=== PATIENT | male | born 1970 | race Caucasian/White ===

== ENCOUNTER 2023-01-05 21:35 | Inpatient (IN) | payer OTHER ==
[~2023-01-05] VITALS: Ht 195.6 cm; Wt 123.8 kg
[~2023-01-05 21:35] MED LIST: ASPI-1444 PO; ATOR40TA71 PO; CARV3.1231 PO; FURO20 PO; LOSA-381 PO; POTA8TAB71 PO; SPIR-37 PO
[2023-01-05 22:52] LABS: BASOPHILS % (AUTO) 0.9 % (0.0-2.0); EOSINOPHILS % (AUTO) 1.8 % (1.0-6.0); HEMATOCRIT 39.9 % (41-53); HEMOGLOBIN 12.6 g/dL (13.5-17.5); LYMPHOCYTES # (AUTO) 1.7 K/uL (1.0-4.8); LYMPHOCYTES % (AUTO) 19.5 % (22.0-44.0); MEAN CORPUSCULAR HEMOGLOBIN 25.7 pg (26.0-34.0); MEAN CORPUSCULAR HGB CONC 31.6 G/dL (31.0-37.0); MEAN CORPUSCULAR VOLUME 82 fL (80-100); MONOCYTES # (AUTO) 0.8 K/uL (0.1-1.0); MONOCYTES % (AUTO) 8.8 % (2.0-9.0); NEUTROPHILS # (AUTO) 6.1 K/uL (1.8-7.7); PLATELET COUNT (AUTO) 214 K/uL (150-450); RED BLOOD CELL COUNT(AUTO) 4.89 MIL/uL (4.50-5.90); RED CELL DISTRIBUTION WIDTH 18.4 % (11.5-14.5)
[2023-01-05 23:00] LABS: ANION GAP 11 mmol/L (8-16); CALCIUM, TOTAL 8.5 mg/dL (8.8-10.5); CARBON DIOXIDE 23 mmol/L (22-29); CHLORIDE 106 mmol/L (98-107); CREATININE 0.99 mg/dL (0.60-1.30); GLOMERULAR FILTR. RATE CALC > 60 mL/min (>60); GLUCOSE,RANDOM 98 mg/dL (70-110); POTASSIUM 4.3 mmol/L (3.5-5.1); SODIUM SERUM 140 mmol/L (136-145); UREA NITROGEN, BLOOD 21 mg/dL (7-18)
[2023-01-05] MEDS ORDERED: IPRATROPIUM BROMIDE 0.5 MG/2.5 ML NEB SOLUTION NEB ONE (23:00)
[2023-01-05] MEDS ORDERED: ALBUTEROL SULFATE 2.5 MG/0.5 ML NEB SOLUTION NEB ONE (23:00)
[2023-01-05] MEDS ORDERED: MethylPREDNISolone SOD SUCC 125 MG/2 ML VIAL IVP ONE (23:00)
[2023-01-05] MEDS ORDERED: FUROSEMIDE 40 MG/4 ML VIAL IVP ONE (23:00)
[2023-01-05 23:06] LABS: ALANINE AMINOTRANSFERASE 33 U/L (12-78); ALBUMIN 3.3 g/dL (3.4-5.0); ALKALINE PHOSPHATASE 165 U/L (46-116); ASPARTATE AMINOTRANSFERASE 30 U/L (15-37); BILIRUBIN,TOTAL 1.4 mg/dL (0.1-1.0); TOTAL PROTEIN, SERUM 7.1 g/dL (6.4-8.2)
[2023-01-05 23:08] LABS: INR 1.4 (0.9-1.1); PROTHROMBIN TIME 14.9 SEC (9.4-11.6)
[2023-01-05 23:25] LABS: B-TYPE NATRIURETIC PEPTIDE 920 pg/mL (0-100)
[2023-01-06] LABS: COVID AG,FIA SOURCE NASOPHARYNGEAL
[2023-01-06 00:23] LABS: APPEARANCE,URINE CLEAR (CLEAR); BILIRUBIN,URINE NEGATIVE (NEGATIVE); GLUCOSE, URINE (UA) NEGATIVE (NEGATIVE); KETONES,URINE NEGATIVE (NEGATIVE); LEUKOCYTE ESTERASE ,URINE NEGATIVE (NEGATIVE); NITRATE,URINE NEGATIVE (NEGATIVE); OCCULT BLOOD,URINE NEGATIVE (NEGATIVE); PROTEIN,URINE 30-70 mg/dL (NEGATIVE); SPECIFIC GRAVITIY, URINE 1.024 (1.003-1.030)
[2023-01-06 00:27] LABS: INFLUENZA TYPE A NEGATIVE FOR TYPE A (NEGATIVE); INFLUENZA TYPE B NEGATIVE FOR TYPE B (NEGATIVE)
[2023-01-06] MEDS ORDERED: ALBUTEROL SULFATE 2.5 MG/0.5 ML NEB SOLUTION NEB PRN (02:15)
[2023-01-06] MEDS ORDERED: IPRATROPIUM BROMIDE 0.5 MG/2.5 ML NEB SOLUTION NEB PRN (02:15)
[2023-01-06] MEDS ORDERED: ONDANSETRON HCL 4 MG/2 ML VIAL IVP PRN (02:15)
[2023-01-06 04:34] LABS: AMPHET/METH SCREEN,URINE POSITIVE (NEGATIVE); BARBITURATE SCREEN, URINE NEGATIVE (NEGATIVE); BENZODIAZEPINES SCREEN,URINE NEGATIVE (NEGATIVE); CANNABINOID SCREEN,URINE NEGATIVE (NEGATIVE); COCAINE SCREEN,URINE NEGATIVE (NEGATIVE); METHADONE SCREEN, URINE NEGATIVE (NEGATIVE); OPIATE SCREEN,URINE NEGATIVE (NEGATIVE); PHENCYCLIDINE SCREEN,URINE NEGATIVE (NEGATIVE)
[2023-01-06 08:10] VITALS: BP 133/87
[2023-01-06] MEDS: CARVEDILOL 6.25 MG TABLET PO SCH ×2 (08:18→21:04)
[2023-01-06] MEDS: HEPARIN SODIUM,PORCINE 5,000 UNITS/ML VIAL SQ SCH ×3 (08:18→23:55)
[2023-01-06] MEDS: FUROSEMIDE 40 MG/4 ML VIAL IVP SCH ×2 (08:18→21:03)
[2023-01-06] MEDS: SPIRONOLACTONE 25 MG TABLET PO SCH ×2 (08:18→21:04)
[2023-01-06] MEDS: ASPIRIN 81 MG CHEWABLE TABLET PO SCH (08:18)
[2023-01-06] MEDS: ATORVASTATIN CALCIUM 40 MG TABLET PO SCH (08:18)
[2023-01-06] MEDS ORDERED: FUROSEMIDE 20 MG/2 ML VIAL IVP SCH (09:00)
[2023-01-06] MEDS: CLOPIDOGREL BISULFATE 75 MG TABLET PO SCH (09:57)
[2023-01-06 16:02] VITALS: BP 125/78
[2023-01-06] MEDS ORDERED: AMLO10TA55 PO (16:04)
[2023-01-06] MEDS ORDERED: LOSARTAN POTASSIUM 25 MG TABLET PO SCH (21:00)
[2023-01-06 21:47] VITALS: BP 133/88
[2023-01-06 23:55] VITALS: BP 103/68
[2023-01-07 04:12] VITALS: BP 122/80
[2023-01-07 06:49] LABS: BASOPHILS % (AUTO) 0.2 % (0.0-2.0); EOSINOPHILS % (AUTO) 0.1 % (1.0-6.0); HEMATOCRIT 37.9 % (41-53); HEMOGLOBIN 12.1 g/dL (13.5-17.5); LYMPHOCYTES # (AUTO) 1.2 K/uL (1.0-4.8); LYMPHOCYTES % (AUTO) 7.5 % (22.0-44.0); MEAN CORPUSCULAR HEMOGLOBIN 25.8 pg (26.0-34.0); MEAN CORPUSCULAR VOLUME 81 fL (80-100); MONOCYTES # (AUTO) 1.1 K/uL (0.1-1.0); MONOCYTES % (AUTO) 6.9 % (2.0-9.0); NEUTROPHILS # (AUTO) 13.7 K/uL (1.8-7.7); PLATELET COUNT (AUTO) 232 K/uL (150-450); RED BLOOD CELL COUNT(AUTO) 4.69 MIL/uL (4.50-5.90); RED CELL DISTRIBUTION WIDTH 18.3 % (11.5-14.5)
[2023-01-07 06:54] LABS: NEUTROPHILS % (AUTO) 85.3 % (40.0-70.0)
[2023-01-07 06:59] LABS: ANION GAP 12 mmol/L (8-16); CALCIUM, TOTAL 8.4 mg/dL (8.8-10.5); CARBON DIOXIDE 24 mmol/L (22-29); CHLORIDE 102 mmol/L (98-107); CREATININE 0.95 mg/dL (0.60-1.30); GLOMERULAR FILTR. RATE CALC > 60 mL/min (>60); GLUCOSE,RANDOM 136 mg/dL (70-110); POTASSIUM 4.2 mmol/L (3.5-5.1); SODIUM SERUM 138 mmol/L (136-145); UREA NITROGEN, BLOOD 23 mg/dL (7-18)
[2023-01-07 07:30] VITALS: BP 112/82
[2023-01-07] MEDS: ASPIRIN 81 MG CHEWABLE TABLET PO SCH (08:59)
[2023-01-07] MEDS: HEPARIN SODIUM,PORCINE 5,000 UNITS/ML VIAL SQ SCH ×2 (08:59→15:56)
[2023-01-07] MEDS: ATORVASTATIN CALCIUM 40 MG TABLET PO SCH (09:00)
[2023-01-07] MEDS: SPIRONOLACTONE 25 MG TABLET PO SCH (09:00)
[2023-01-07] MEDS: FUROSEMIDE 40 MG/4 ML VIAL IVP SCH (09:00)
[2023-01-07] MEDS: CARVEDILOL 6.25 MG TABLET PO SCH (09:00)
[2023-01-07] MEDS: CLOPIDOGREL BISULFATE 75 MG TABLET PO SCH (09:01)
[2023-01-07] MEDS ORDERED: ALPRAZolam 0.25 MG TABLET PO ONE (11:30)
[2023-01-07 11:47] VITALS: BP 107/81
[2023-01-07] MEDS ORDERED: CefTRIAXone 1 GM/DEXTROSE 50 ML IV ONE (14:00)
[2023-01-07] MEDS ORDERED: SODIUM CHLORIDE 0.9% 250 ML IV ONE (14:34)
[2023-01-07] MEDS ORDERED: DOXYCYCLINE HYCLATE 100 MG in DEXTROSE 5%-WATER 100 ML IV ONE (15:00)
[2023-01-07 15:56] VITALS: BP 130/53
[2023-01-07] MEDS ORDERED: DOXY-354 PO (16:03)
[2023-01-07] MEDS ORDERED: CEFD300C18 PO (16:03)
[2023-01-07] MEDS ORDERED: CARV6 PO (16:04)
[2023-01-07] MEDS ORDERED: ATOR40TA28 PO (16:04)
[2023-01-07] MEDS ORDERED: FURO20 PO (16:05)
[2023-01-07] MEDS ORDERED: CLOP75TA60 PO (16:05)
[2023-01-07] MEDS ORDERED: LOSA-381 PO (16:06)
[2023-01-07] MEDS ORDERED: SPIR-37 PO (16:06)
[2023-01-07] MEDS ORDERED: FUROSEMIDE 20 MG TABLET PO SCH (21:00)
== END 2023-01-07 16:50 | disposition home or self-care (01) | DRG 194 ==
LOC: EMS 21:51 → 5S 01-06 03:05
PROVIDERS: ADMIT Internal Medicine; ATTEND Internal Medicine
DX: I11.0 Hypertensive heart disease with heart failure (principal); I42.7 Cardiomyopathy due to drug and external agent; E78.5 Hyperlipidemia, unspecified; F15.10 Other stimulant abuse, uncomplicated; I50.23 Acute on chronic systolic (congestive) heart failure; Z20.822 Contact with and (suspected) exposure to COVID-19; J44.9 Chronic obstructive pulmonary disease, unspecified; I07.1 Rheumatic tricuspid insufficiency; R07.89 Other chest pain; R80.9 Proteinuria, unspecified; F17.210 Nicotine dependence, cigarettes, uncomplicated; I25.10 Atherosclerotic heart disease of native coronary artery without angina pectoris; I25.2 Old myocardial infarction; Y92.89 Other specified places as the place of occurrence of the external cause; Z82.49 Family history of ischemic heart disease and other diseases of the circulatory system; Z91.199 Patient's noncompliance with other medical treatment and regimen due to unspecified reason; Z95.5 Presence of coronary angioplasty implant and graft; Z79.899 Other long term (current) drug therapy; Z79.82 Long term (current) use of aspirin; Z71.51 Drug abuse counseling and surveillance of drug abuser; Z71.6 Tobacco abuse counseling
CPT/HCPCS: 71045; 80048; 80053; 80307; 81003; 83735; 83880; 84484; 85025; 85610; 85730; 87804; 93005; 94640; 99291; J0696; J1644; J1940; J2930; J3490; J7050; J7060; 36415-L1; 36415-TC; J7613

== ENCOUNTER 2023-07-12 20:04 | Inpatient (IN) | payer OTHER ==
[~2023-07-12] VITALS: Ht 195.6 cm; Wt 121.4 kg
[~2023-07-12 20:04] MED LIST changes: -ASPI-1444 PO; +ATOR40TA28 PO; -ATOR40TA71 PO; -CARV3.1231 PO; +CARV6 PO; +CEFD300C18 PO; +CLOP75TA60 PO; +DOXY-354 PO; -POTA8TAB71 PO
[2023-07-12 20:10] VITALS: PULSE 95; RESP 22; O2SAT 94
[2023-07-12] MEDS ORDERED: IPRATROPIUM BROMIDE 0.5 MG/2.5 ML NEB SOLUTION NEB ONE (21:00)
[2023-07-12] MEDS ORDERED: ALBUTEROL SULFATE 2.5 MG/0.5 ML NEB SOLUTION NEB ONE (21:00)
[2023-07-12 21:15] VITALS: PULSE 95; RESP 20; O2SAT 97
[2023-07-12 21:15] LABS: BASOPHILS % (AUTO) 0.5 % (0.0-2.0); EOSINOPHILS % (AUTO) 1.2 % (1.0-6.0); HEMATOCRIT 40.8 % (41-53); HEMOGLOBIN 12.8 g/dL (13.5-17.5); LYMPHOCYTES # (AUTO) 1.5 K/uL (1.0-4.8); LYMPHOCYTES % (AUTO) 14.6 % (22.0-44.0); MEAN CORPUSCULAR HEMOGLOBIN 25.6 pg (26.0-34.0); MEAN CORPUSCULAR HGB CONC 31.4 G/dL (31.0-37.0); MEAN CORPUSCULAR VOLUME 82 fL (80-100); MONOCYTES # (AUTO) 0.8 K/uL (0.1-1.0); MONOCYTES % (AUTO) 7.8 % (2.0-9.0); NEUTROPHILS # (AUTO) 7.6 K/uL (1.8-7.7); NEUTROPHILS % (AUTO) 75.9 % (40.0-70.0); PLATELET COUNT (AUTO) 227 K/uL (150-450); RED CELL DISTRIBUTION WIDTH 17.1 % (11.5-14.5)
[2023-07-12] MEDS ORDERED: FUROSEMIDE 20 MG/2 ML VIAL IVP ONE (21:15)
[2023-07-12 21:20] VITALS: PULSE 94; RESP 21; O2SAT 95
[2023-07-12 21:38] VITALS: PULSE 94; RESP 20; O2SAT 97
[2023-07-12 22:00] LABS: ANION GAP 14 mmol/L (8-16); CALCIUM, TOTAL 8.5 mg/dL (8.8-10.5); CARBON DIOXIDE 21 mmol/L (22-29); CHLORIDE 103 mmol/L (98-107); GLOMERULAR FILTR. RATE CALC > 60 mL/min (>60); GLUCOSE,RANDOM 100 mg/dL (70-110); POTASSIUM 4.1 mmol/L (3.5-5.1); SODIUM SERUM 138 mmol/L (136-145)
[2023-07-12] MEDS ORDERED: ACETAMINOPHEN 325 MG TABLET PO PRN (22:00)
[2023-07-12] MEDS ORDERED: ASPIRIN 81 MG CHEWABLE TABLET PO ONE (22:00)
[2023-07-12] MEDS ORDERED: ONDANSETRON HCL 4 MG/2 ML VIAL IVP PRN (22:00)
[2023-07-12 22:05] LABS: D-DIMER 1.92 mg/L FEU (0.00-0.50)
[2023-07-12 22:06] LABS: ALANINE AMINOTRANSFERASE 32 U/L (12-78); ALBUMIN 3.3 g/dL (3.4-5.0); ALKALINE PHOSPHATASE 196 U/L (46-116); ASPARTATE AMINOTRANSFERASE 48 U/L (15-37); BILIRUBIN,TOTAL 3.7 mg/dL (0.1-1.0)
[2023-07-12 22:07] LABS: INR 1.5 (0.9-1.1); PROTHROMBIN TIME 15.4 SEC (9.4-11.6)
[2023-07-12] MEDS: METOPROLOL TARTRATE 25 MG TABLET PO SCH (22:09)
[2023-07-12 22:10] LABS: B-TYPE NATRIURETIC PEPTIDE 1100 pg/mL (0-100)
[2023-07-12 22:58] LABS: APPEARANCE,URINE CLEAR (CLEAR); BILIRUBIN,URINE NEGATIVE (NEGATIVE); GLUCOSE, URINE (UA) NEGATIVE (NEGATIVE); KETONES,URINE NEGATIVE (NEGATIVE); LEUKOCYTE ESTERASE ,URINE NEGATIVE (NEGATIVE); NITRATE,URINE NEGATIVE (NEGATIVE); OCCULT BLOOD,URINE NEGATIVE (NEGATIVE); PH,URINE 5.5 (5.0-8.0); PROTEIN,URINE NEGATIVE (NEGATIVE); SPECIFIC GRAVITIY, URINE 1.013 (1.003-1.030); UROBILINOGEN,URINE <=1.0 mg/dL (<=1.0)
[2023-07-12] MEDS: BUMETANIDE 0.25 MG/ML 4 ML VIAL IVP SCH (23:20)
[2023-07-13] VITALS (7 sets, daily range): BP systolic 102–136; BP diastolic 76–88; PULSE 73–92; RESP 16–21; TEMP 98.1–98.4; O2SAT 97
[2023-07-13] MEDS: HEPARIN SODIUM,PORCINE 5,000 UNITS/ML VIAL SQ SCH ×3 (00:43→17:18)
[2023-07-13 07:19] LABS: BASOPHILS % (AUTO) 0.9 % (0.0-2.0); EOSINOPHILS % (AUTO) 1.5 % (1.0-6.0); HEMATOCRIT 41.8 % (41-53); HEMOGLOBIN 13.1 g/dL (13.5-17.5); LYMPHOCYTES # (AUTO) 1.3 K/uL (1.0-4.8); LYMPHOCYTES % (AUTO) 14.7 % (22.0-44.0); MEAN CORPUSCULAR HEMOGLOBIN 25.7 pg (26.0-34.0); MEAN CORPUSCULAR HGB CONC 31.4 G/dL (31.0-37.0); MEAN CORPUSCULAR VOLUME 82 fL (80-100); MONOCYTES # (AUTO) 0.7 K/uL (0.1-1.0); MONOCYTES % (AUTO) 8.4 % (2.0-9.0); NEUTROPHILS # (AUTO) 6.6 K/uL (1.8-7.7); NEUTROPHILS % (AUTO) 74.5 % (40.0-70.0); PLATELET COUNT (AUTO) 246 K/uL (150-450); RED BLOOD CELL COUNT(AUTO) 5.11 MIL/uL (4.50-5.90); RED CELL DISTRIBUTION WIDTH 17.1 % (11.5-14.5)
[2023-07-13 07:37] LABS: ANION GAP 16 mmol/L (8-16); CALCIUM, TOTAL 7.8 mg/dL (8.8-10.5); CARBON DIOXIDE 22 mmol/L (22-29); CHLORIDE 101 mmol/L (98-107); CREATININE 0.82 mg/dL (0.60-1.30); GLOMERULAR FILTR. RATE CALC > 60 mL/min (>60); GLUCOSE,RANDOM 132 mg/dL (70-110); POTASSIUM 3.9 mmol/L (3.5-5.1); SODIUM SERUM 139 mmol/L (136-145)
[2023-07-13] MEDS: METOPROLOL TARTRATE 25 MG TABLET PO SCH ×2 (09:10→21:09)
[2023-07-13] MEDS: DOCUSATE SODIUM 100 MG CAPSULE PO SCH ×2 (09:10→21:10)
[2023-07-13] MEDS: BUMETANIDE 0.25 MG/ML 4 ML VIAL IVP SCH ×2 (09:10→22:52)
[2023-07-13] MEDS: ASPIRIN 81 MG CHEWABLE TABLET PO SCH (09:11)
[2023-07-13] MEDS: CLOPIDOGREL BISULFATE 75 MG TABLET PO SCH (09:11)
[2023-07-13] MEDS: SPIRONOLACTONE 25 MG TABLET PO SCH ×2 (10:45→21:09)
[2023-07-13] MEDS ORDERED: ATORVASTATIN CALCIUM 40 MG TABLET PO SCH (21:00)
[2023-07-13] MEDS ORDERED: LOSARTAN POTASSIUM 25 MG TABLET PO SCH (21:00)
[2023-07-14 00:16] VITALS: BP 117/61; PULSE 78; RESP 20; TEMP 98.1
[2023-07-14] MEDS: HEPARIN SODIUM,PORCINE 5,000 UNITS/ML VIAL SQ SCH ×2 (00:29→09:08)
[2023-07-14 04:05] VITALS: BP 125/90; PULSE 74; RESP 24; TEMP 98.1
[2023-07-14 08:04] VITALS: BP 124/87; PULSE 80; RESP 20; TEMP 97.6
[2023-07-14] MEDS: DOCUSATE SODIUM 100 MG CAPSULE PO SCH (09:00)
[2023-07-14] MEDS: METOPROLOL TARTRATE 25 MG TABLET PO SCH (09:08)
[2023-07-14] MEDS: ASPIRIN 81 MG CHEWABLE TABLET PO SCH (09:08)
[2023-07-14] MEDS: CLOPIDOGREL BISULFATE 75 MG TABLET PO SCH (09:08)
[2023-07-14] MEDS: BUMETANIDE 0.25 MG/ML 4 ML VIAL IVP SCH (09:08)
[2023-07-14] MEDS: SPIRONOLACTONE 25 MG TABLET PO SCH (09:08)
[2023-07-14 11:33] VITALS: BP 116/78; PULSE 58; RESP 18; TEMP 97.5
[2023-07-14] MEDS ORDERED: METO25XL PO (11:53)
[2023-07-16] MEDS ORDERED: LISI-892 PO (09:52)
[2023-07-16] MEDS ORDERED: ALBU18HF12 IH (09:54)
== END 2023-07-14 12:25 | disposition home or self-care (01) | DRG 194 ==
LOC: EMS 20:04 → ICU 07-13 01:00 → 5S 07-13 18:37
PROVIDERS: ADMIT Internal Medicine; ATTEND Internal Medicine
PROC: 5A09357 Assistance with Respiratory Ventilation, Less than 24 Consecutive Hours, Continuous Positive Airway Pressure (ICD-10-PCS; principal; 2023-07-12)
DX: I11.0 Hypertensive heart disease with heart failure (principal); J96.01 Acute respiratory failure with hypoxia; I50.43 Acute on chronic combined systolic (congestive) and diastolic (congestive) heart failure; J44.9 Chronic obstructive pulmonary disease, unspecified; F15.10 Other stimulant abuse, uncomplicated; F17.210 Nicotine dependence, cigarettes, uncomplicated; E66.9 Obesity, unspecified; I42.7 Cardiomyopathy due to drug and external agent; Z79.01 Long term (current) use of anticoagulants; R79.1 Abnormal coagulation profile; R79.89 Other specified abnormal findings of blood chemistry; Z79.899 Other long term (current) drug therapy; Z95.5 Presence of coronary angioplasty implant and graft; I25.2 Old myocardial infarction; Z91.148 Patient's other noncompliance with medication regimen for other reason; Z82.49 Family history of ischemic heart disease and other diseases of the circulatory system; Z68.31 Body mass index [BMI] 31.0-31.9, adult
CPT/HCPCS: 71045; 76705; 80048; 80053; 81003; 83735; 83880; 84484; 85025; 85379; 85610; 85730; 87040; 87077; 87081; 87205; 93005; 99291; J1644; J1940; J3490; 36415-L1; 36415-TC; J7613